=== PATIENT | female | born 1950 | race Caucasian/White ===

== ENCOUNTER 2016-09-21 16:57 | Emergency (ER) | payer MEDICARE, MEDICAID ==
--- NOTE | 2016-09-21 17:57 | ER Document Report ---
ED Medical Screen (RME) - General Stated Complaint: FLU LIKE SYMPTOMS Notes: 66 yo female c/o flu like symptoms, fever, bodyache. + flu test at urgent care today + nausea/vomiting x 3 days. hx/o pacer, arthritis pt is tachy 120 TRAVEL OUTSIDE OF THE [place] IN LAST 30 DAYS: No - Related Data Allergies/Adverse Reactions: codeine [Codeine] Allergy (Verified 09/21/16 17:52) Past Medical History GI Medical History: Reports: Hx Gastroesophageal Reflux Disease Musculoskeltal Medical History: Reports Hx Arthritis Past Surgical History: Reports: Hx Cholecystectomy Physical Exam - Vital signs Vitals: Temp Pulse Resp BP Pulse Ox 100.9 F H 120 H 18 115/79 94 09/21/16 17:15 09/21/16 17:15 09/21/16 17:15 09/21/16 17:15 09/21/16 17:15 Course - Vital Signs Vital signs: Temp Pulse Resp BP Pulse Ox 100.9 F H 120 H 18 115/79 94 09/21/16 17:15 09/21/16 17:15 09/21/16 17:15 09/21/16 17:15 09/21/16 17:15
[2016-09-21 18:29] LABS: HEMATOCRIT 42.1 % (36.0-47.0); HEMOGLOBIN 14.2 g/dL (12.0-15.5); HGB HCT DIFFERENCE 0.5; MEAN CORPUSCULAR HEMOGLOBIN 30.2 pg (27.0-33.4); MEAN CORPUSCULAR HGB CONC 33.8 g/dL (32.0-36.0); MEAN CORPUSCULAR VOLUME 89 fl (80-97); RED BLOOD COUNT 4.72 10^6/uL (3.72-5.28); RED CELL DISTRIBUTION WIDTH 15.3 % (11.5-14.0); WHITE BLOOD COUNT 18.4 10^3/uL (4.0-10.5)
[2016-09-21 18:44] LABS: ALANINE AMINOTRANSFERASE 138 U/L (9-52); ALKALINE PHOSPHATASE 87 U/L (38-126); ANION GAP 14 (5-19); ASPARTATE AMINO TRANSFERASE 60 U/L (14-36); BAND NEUTROPHILS % (MANUAL) 5 % (3-5); BASOPHILS % (MANUAL) 0 % (0-2); BILIRUBIN,DIRECT 0.3 mg/dL (0.0-0.4); BILIRUBIN,TOTAL 0.7 mg/dL (0.2-1.3); BLOOD UREA NITROGEN 19 mg/dL (7-20); CALCIUM 10.2 mg/dL (8.4-10.2); CARBON DIOXIDE 21 mmol/L (22-30); CHLORIDE 101 mmol/L (98-107); CREATININE RESULT 1.06 mg/dL (0.52-1.25); EOSINOPHILS % (MANUAL) 0 % (0-6); GLUCOSE 98 mg/dL (75-110); LIPASE 67.5 U/L (23-300); LYMPHOCYTES % (MANUAL) 15 % (13-45); POTASSIUM 4.4 mmol/L (3.6-5.0); TOTAL CELLS COUNTED 100; TOTAL PROTEIN 6.6 g/dL (6.3-8.2)
[2016-09-21 18:47] LABS: POLYCHROMASIA 1+; TOXIC GRANULATION 1+; TOXIC VACUOLATION PRESENT
[2016-09-21 18:51] LABS: ANISOCYTOSIS SLIGHT; PLATELET CLUMPS PRESENT; TARGET CELLS SLIGHT
[2016-09-21] MEDS ORDERED: NORMAL SALINE 500 ML IV ONE (22:24)
[2016-09-21] MEDS ORDERED: IBUPROFEN 600 MG TABLET PO ONE (22:25)
--- NOTE | 2016-09-21 22:40 | ER Document Report ---
ED General - General Time seen by provider: 22:18 Mode of Arrival: Ambulatory Information source: Patient TRAVEL OUTSIDE OF THE [place] IN LAST 30 DAYS: No - HPI Onset: Other - see HPI note Associated symptoms: Nonproductive cough, Fever, Nausea, Vomiting, Sore throat. denies: Diarrhea <JOYCELYN ORDOÑEZ - Last Filed: 09/22/16 01:14> <ROSESHAQALESHA - Last Filed: 09/22/16 09:19> - General Chief Complaint: Flu Symptoms Stated Complaint: FLU LIKE SYMPTOMS Notes: Patient is a 66 year old female presenting to the ED for lack of appetite, dehydration, vomiting, and shortness of breath. Patient states she has had a cough and cold symptoms for 3 weeks. Patient saw her PCP today at [facility] and was evaluated. Patient had a negative influenza A and B, negative strep test, and a fever of 102.8 F. Patient was given Tylenol for this. Upon arrival the patient's temperature was 100.9 F. Patient states she has had nausea, vomiting, and lack of appetite for the last few days and not been able to urinate since this morning. Patient was not able to give a urine sample at her PCP today either. Patient had some water in the ED but has not been able to eat much over the last few days. Patient also has some shortness of breath and is speaking in broken sentences. Patient denies abdominal pain or diarrhea. Patient has a history of a pacemaker, knee surgery x2, blood clots, and arthritis. Patient is taking eliquis. Patient is allergic to codeine. (JOYCELYN ORDOÑEZ) - Related Data Allergies/Adverse Reactions: codeine [Codeine] Allergy (Verified 09/21/16 17:52) Past Medical History - General Information source: Patient - Social History Smoking Status: Unknown if Ever Smoked Chew tobacco use (# tins/day): No Frequency of alcohol use: None Drug Abuse: None Family History: None Patient has suicidal ideation: No Patient has homicidal ideation: No - Past Medical History Cardiac Medical History: Reports: Other - blood clots GI Medical History: Reports: Hx Gastroesophageal Reflux Disease Musculoskeltal Medical History: Reports Hx Arthritis Past Surgical History: Reports: Hx Cholecystectomy, Hx Orthopedic Surgery - knee surgery x2, Hx Pacemaker <JOYCELYN ORDOÑEZ - Last Filed: 09/22/16 01:14> Review of Systems - Review of Systems Constitutional: See HPI, Fever, Malaise EENT: See HPI, Nose congestion, Throat pain Cardiovascular: No symptoms reported Respiratory: See HPI, Cough, Short of breath Gastrointestinal: See HPI, Nausea, Vomiting, Poor appetite, Poor fluid intake. denies: Abdominal pain, Diarrhea Genitourinary: See HPI, Retention Female Genitourinary: No symptoms reported Musculoskeletal: No symptoms reported Skin: No symptoms reported Hematologic/Lymphatic: No symptoms reported Neurological/Psychological: No symptoms reported -: Yes All other systems reviewed and negative <JOYCELYN ORDOÑEZ - Last Filed: 09/22/16 01:14> Physical Exam - Vital signs Interpretation: Tachycardic, Febrile - General General appearance: Appears well, Alert In distress: Mild - HEENT Head: Normocephalic, Atraumatic Eyes: Normal Pupils: PERRL Mucous membranes: Moist - Respiratory Respiratory status: No respiratory distress Chest status: Nontender Breath sounds: Nonproductive cough Chest palpation: Normal - Cardiovascular Rhythm: Regular, Tachycardia Heart sounds: Normal auscultation Murmur: No - Abdominal Inspection: Normal Distension: No distension Bowel sounds: Normal Tenderness: Nontender Organomegaly: No organomegaly - Back Back: Normal, Nontender - Extremities General upper extremity: Normal inspection, Normal ROM, Normal strength General lower extremity: Normal inspection, Normal ROM, Normal strength - Neurological Neuro grossly intact: Yes Cognition: Normal Orientation: AAOx4 Asya Coma Scale Eye Opening: Spontaneous Saya Coma Scale Verbal: Oriented Duncan Coma Scale Motor: Obeys Commands Asya Coma Scale Total: 15 Speech: Normal Sensory: Normal - Psychological Associated symptoms: Normal affect, Normal mood - Skin Skin Temperature: Hot Skin Moisture: Dry <JOYCELYN ORDOÑEZ - Last Filed: 09/22/16 01:14> <ALESHA ROSE - Last Filed: 09/22/16 09:19> - Vital signs Vitals: Temp Pulse Resp BP Pulse Ox 100.9 F H 120 H 18 115/79 94 09/21/16 17:15 09/21/16 17:15 09/21/16 17:15 09/21/16 17:15 09/21/16 17:15 Course - Laboratory Result Diagrams: 09/21/16 18:05 09/21/16 18:05 <JOYCELYN ORDOÑEZ - Last Filed: 09/22/16 01:14> - Laboratory Result Diagrams: 09/21/16 18:05 09/21/16 18:05 <ALESHA ROSE - Last Filed: 09/22/16 09:19> - Re-evaluation Re-evalutation: 09/22/16 03:38 I personally performed the services described in the documentation, reviewed and edited the documentation which was dictated to my scribe in my presence, and it accurately records my words and actions. Patient came into the emergency department with flulike symptoms cough upper restrain illness mild occasional shortness of breath and vomiting for the past 3 days. She says she feels like she has the flu. She denies any documentation of fever chills abdominal pain or urinary complaints. On examination she was febrile and slightly tachycardic O2 sat was 94% on room air her lungs were clear she was in no respiratory distress we gave her IV fluids obtain laboratory evaluation White blood cell count is elevated liver shot of Rocephin for reading of left upper lobe and left lower lobe pneumonia. Patient will be reassessed with full set of vital signs including oxygenation level after Rocephin is given. 09/22/16 09:17 Patient reassessed stable at the bedside no difficulty breathing fever has defervesced. She was given Rocephin she wants to try to go home follow-up with the primary care physician one to 2 days I think that's reasonable at this point. I discharge her to home on antibiotics 1-2 day follow-up and discuss reasons for ED return sooner (ALESHA ROSE) - Vital Signs Vital signs: Temp Pulse Resp BP Pulse Ox 98.9 F 104 H 16 113/71 92 09/22/16 06:29 09/22/16 06:29 09/22/16 03:30 09/22/16 06:29 09/22/16 06:29 - Laboratory Laboratory results interpreted by me: 09/21/16 09/21/16 09/21/16 18:05 18:05 23:20 WBC 18.4 H RDW 15.3 H Monocytes % (Manual) 14 H Abs Neuts (Manual) 12.3 H Abs Monocytes (Manual) 2.6 H Sodium 136.0 L Carbon Dioxide 21 L Est GFR (Non-Af Amer) 52 L AST 60 H ALT 138 H Urine Protein 100 H Urine Ketones TRACE H Urine Blood SMALL H Discharge <JOYCELYN ORDOÑEZ - Last Filed: 09/22/16 01:14> <ALESHA ROSE - Last Filed: 09/22/16 09:19> - Discharge Clinical Impression: Pneumonia Qualifiers: Pneumonia type: due to unspecified organism Laterality: unspecified laterality Lung location: unspecified part of lung Qualified Code(s): J18.9 - Pneumonia, unspecified organism Condition: Stable Disposition: HOME, SELF-CARE Additional Instructions: Pneumonia Your examination indicates that you have pneumonia. This is an infection of the lung tissue, usually caused by bacteria or a virus. Symptoms include cough, fever, shaking chills, chest pain, shortness of breath, and coughing up bloody sputum. Treatment for bacterial pneumonia includes rest, antibiotics for 10 to 14 days, increasing your clear liquid intake, a cool mist humidifier at your bedside, and fever medication. Often, a repeat chest X-ray is performed in a few weeks--even if you feel better--to ascertain whether the infection has completely resolved and no underlying lung problem is present. You should call the physician if you develop persistent vomiting, high fever that does not respond to fever medication, increasing shortness of breath , confusion, or lethargy. Also, failure to improve within two to three days is an indication for re-examination. Follow-up with your primary care physician one to 2 days return for increasing worsening or new symptoms. Prescriptions: Amox Tr/Potassium Clavulanate [Augmentin 875-125 Tablet] 1 tab PO BID 10 Days Scribe Documentation - Scribe Written by Sera:: Joycelyn Ordoñez 09/22/16 1:14 acting as scribe for :: Rose <JOYCELYN ORDOÑEZ - Last Filed: 09/22/16 01:14>
[2016-09-22 01:06] LABS: APPEARANCE,URINE CLOUDY; BILIRUBIN,URINE NEGATIVE (NEGATIVE); GLUCOSE, URINE NEGATIVE (NEGATIVE); KETONES,URINE TRACE mg/dL (NEGATIVE); LEUKOCYTE ESTERASE,URINE NEGATIVE (NEGATIVE); NITRITE,URINE NEGATIVE (NEGATIVE); PROTEIN,URINE 100 mg/dL (NEGATIVE); URINE SPECIFIC GRAVITY 1.027; UROBILINOGEN,URINE NEGATIVE mg/dL (<2.0)
[2016-09-22] MEDS ORDERED: CEFTRIAXONE INJ 1000 MG VIAL IM ONE (03:37)
[2016-09-22] MEDS ORDERED: IBUPROFEN 800 MG TABLET ONE (04:05)
[2016-09-22 09:42] VITALS: BP 125/80
== END 2016-09-22 10:00 | disposition home or self-care (01) ==
LOC: ER 16:57
DX: J18.9 Pneumonia, unspecified organism (principal); R63.0 Anorexia; E86.0 Dehydration; R11.10 Vomiting, unspecified; R06.02 Shortness of breath; R05 Cough; R50.9 Fever, unspecified
CPT/HCPCS: 99284; 96372; 51701; 36415; 87040; 83690; 85025; 80053; 81001; 71020; A9270; J0696

== ENCOUNTER 2016-09-27 11:33 | Inpatient (IN) | payer MEDICARE, MEDICAID ==
--- NOTE | 2016-09-27 12:13 | ER Document Report ---
ED General - General Stated Complaint: FALL/GENERALIZED PAIN Mode of Arrival: Ambulatory Information source: Patient Notes: 66-year-old female who was diagnosed one week ago with pneumonia presents with complaints of generalized weakness shortness of breath. Patient notes she laid on the floor since yesterday due to weakness. Denies any fevers admits to productive yellow cough TRAVEL OUTSIDE OF THE [place] IN LAST 30 DAYS: No - HPI Onset: Last week Onset/Duration: Persistent Quality of pain: Achy Severity: Mild Pain Level: 1 Associated symptoms: Productive cough, Fever, Shortness of breath Exacerbated by: Denies Relieved by: Denies Similar symptoms previously: Yes Recently seen / treated by doctor: Yes - Related Data Allergies/Adverse Reactions: codeine [Codeine] Allergy (Verified 09/21/16 17:52) Past Medical History - Social History Smoking Status: Former Smoker Cigarette use (# per day): No Chew tobacco use (# tins/day): No Smoking Education Provided: No Family History: None Renal/ Medical History: Denies: Hx Peritoneal Dialysis GI Medical History: Reports: Hx Gastroesophageal Reflux Disease Musculoskeltal Medical History: Reports Hx Arthritis Past Surgical History: Reports: Hx Cholecystectomy, Hx Orthopedic Surgery - knee surgery x2, Hx Pacemaker Review of Systems - Review of Systems Notes: REVIEW OF SYSTEMS: CONSTITUTIONAL : Denies fever, chills, or sweats. Denies recent illness. EENT: Dry lips CARDIOVASCULAR: Denies chest pain. Denies palpitations or racing or irregular heart beat. Denies ankle edema. RESPIRATORY: Admits shortness breath difficulty breathing GASTROINTESTINAL: Denies abdominal pain or distention. Denies nausea, vomiting , or diarrhea. Denies blood in vomitus, stools, or per rectum. Denies black, tarry stools. Denies constipation. GENITOURINARY: Denies difficulty urinating, painful urination, burning, frequency, blood in urine, or discharge. FEMALE GENITOURINARY: Denies vaginal bleeding, heavy or abnormal periods, irregular periods. Denies vaginal discharge or odor. MUSCULOSKELETAL: Denies back or neck pain or stiffness. Denies joint pain or swelling. SKIN: Denies rash, lesions or sores. HEMATOLOGIC : Denies easy bruising or bleeding. LYMPHATIC: Denies swollen, enlarged glands. NEUROLOGICAL: Denies confusion or altered mental status. Denies passing out or loss of consciousness. Denies dizziness or lightheadedness. Denies headache. Denies weakness or paralysis or loss of use of either side. Denies problems with gait or speech. Denies sensory loss, numbness, or tingling. Denies seizures. PSYCHIATRIC: Denies anxiety or stress. Denies depression, suicidal ideation, or homicidal ideation. ALL OTHER SYSTEMS REVIEWED AND NEGATIVE. Dictation was performed using [employer] voice recognition software PHYSICAL EXAMINATION: GENERAL: Well-appearing, well-nourished and in no acute distress. HEAD: Atraumatic, normocephalic. EYES: Pupils equal round and reactive to light, extraocular movements intact, conjunctiva are normal. ENT: Dry lips NECK: Normal range of motion, supple without lymphadenopathy LUNGS: Coarse wheezing all throughout HEART: Tachycardic ABDOMEN: Soft, nontender, nondistended abdomen. No guarding, no rebound. No masses appreciated. Female : deferred Musculoskeletal: Normal range of motion, no pitting or edema. No cyanosis. NEUROLOGICAL: Cranial nerves grossly intact. Normal speech, normal gait. Normal sensory, motor exams PSYCH: Normal mood, normal affect. SKIN: Left foot erythematous Course - Re-evaluation Re-evalutation: 09/27/16 12:13 Patient notes chronic swelling of her left foot secondary to arthritis, patient is noted to be tachycardic septic workup pending 09/27/16 14:[address] is noted to have upper and lower lobe pneumonia, at this time she meet sepsis criteria. Patient started on antibiotics. Fluids have been ordered. Patient will be admitted to the hospital service for further evaluation and care 09/27/16 14:04 Patient noted to be satting 88% on room air, she was placed on oxygen - Laboratory Result Diagrams: 09/27/16 12:35 09/27/16 12:35 Laboratory results interpreted by me: 09/27/16 09/27/16 09/27/16 12:35 12:35 12:35 WBC 19.0 H Hct 35.9 L RDW 15.8 H Seg Neuts % (Manual) 87 H Lymphocytes % (Manual) 5 L Abs Neuts (Manual) 17.3 H VBG pH BUN 22 H Calcium 10.5 H AST 244 H ALT 250 H Alkaline Phosphatase 162 H Creatine Kinase 654 H NT-Pro-B Natriuret Pep 1020 H Total Protein 5.7 L Albumin 3.0 L Urine Protein Urine Ketones Urine Blood 09/27/16 09/27/16 12:35 13:10 WBC Hct RDW Seg Neuts % (Manual) Lymphocytes % (Manual) Abs Neuts (Manual) VBG pH 7.44 H BUN Calcium AST ALT Alkaline Phosphatase Creatine Kinase NT-Pro-B Natriuret Pep Total Protein Albumin Urine Protein 30 H Urine Ketones TRACE H Urine Blood MODERATE H - Diagnostic Test Radiology reviewed: Image reviewed, Reports reviewed Critical Care Note - Critical Care Note Total time excluding time spent on procedures (mins): 34 Comments: 34 minutes of critical care time spent in direct contact evaluating and reevaluating the patient, treating symptoms, reviewing labs and studies and speaking with family and consultants excluding any procedures Discharge - Discharge Clinical Impression: Hypoxemia Sepsis Qualifiers: Sepsis type: sepsis due to unspecified organism Qualified Code(s): A41.9 - Sepsis, unspecified organism Pneumonia Qualifiers: Pneumonia type: due to unspecified organism Laterality: left Lung location: lower lobe of lung Qualified Code(s): J18.1 - Lobar pneumonia, unspecified organism Condition: Stable Disposition: ADMITTED INPATIENT Admitting Provider: Hospitalist Unit Admitted: Medical Floor
[2016-09-27 13:03] LABS: VENOUS BLOOD BASE EXCESS 0.7 mmol/L; VENOUS BLOOD HCO3 24.3 mmol/L (20-32); VENOUS BLOOD PCO2 36.3 mmHg (35-63); VENOUS BLOOD PH 7.44 (7.30-7.42)
[2016-09-27 13:06] LABS: HEMATOCRIT 35.9 % (36.0-47.0); HEMOGLOBIN 12.2 g/dL (12.0-15.5); HGB HCT DIFFERENCE 0.7; MEAN CORPUSCULAR HEMOGLOBIN 30.2 pg (27.0-33.4); MEAN CORPUSCULAR HGB CONC 34.1 g/dL (32.0-36.0); MEAN CORPUSCULAR VOLUME 89 fl (80-97); RED BLOOD COUNT 4.05 10^6/uL (3.72-5.28); RED CELL DISTRIBUTION WIDTH 15.8 % (11.5-14.0)
--- NOTE | 2016-09-27 13:15 | EKG REPORT ---
SEVERITY:- ABNORMAL ECG - SINUS TACHYCARDIA IVCD, CONSIDER ATYPICAL RBBB LVH WITH IVCD AND SECONDARY REPOL ABNRM : Confirmed by: Sally Agee MD 27-Sep-2016 13:14:26
[2016-09-27 13:23] LABS: ALANINE AMINOTRANSFERASE 250 U/L (9-52); ALKALINE PHOSPHATASE 162 U/L (38-126); ANION GAP 10 (5-19); ASPARTATE AMINO TRANSFERASE 244 U/L (14-36); BILIRUBIN,DIRECT 0.3 mg/dL (0.0-0.4); BILIRUBIN,TOTAL 0.7 mg/dL (0.2-1.3); BLOOD UREA NITROGEN 22 mg/dL (7-20); CALCIUM 10.5 mg/dL (8.4-10.2); CARBON DIOXIDE 26 mmol/L (22-30); CHLORIDE 102 mmol/L (98-107); CREATINE KINASE 654 U/L (30-135); CREATININE RESULT 0.86 mg/dL (0.52-1.25); GLUCOSE 82 mg/dL (75-110); LIPASE 243.8 U/L (23-300); POTASSIUM 4.5 mmol/L (3.6-5.0); SODIUM 138.3 mmol/L (137-145); TOTAL PROTEIN 5.7 g/dL (6.3-8.2)
[2016-09-27 13:25] LABS: ANISOCYTOSIS SLIGHT; BAND NEUTROPHILS % (MANUAL) 4 % (3-5); BASOPHILS % (MANUAL) 0 % (0-2); EOSINOPHILS % (MANUAL) 0 % (0-6); HYPOCHROMASIA SLIGHT; LYMPHOCYTES % (MANUAL) 5 % (13-45); POLYCHROMASIA SLIGHT; TOTAL CELLS COUNTED 100; TOXIC GRANULATION 3+; TOXIC VACUOLATION PRESENT
[2016-09-27 13:29] LABS: APPEARANCE,URINE SLIGHTLY-CLOUDY; BILIRUBIN,URINE NEGATIVE (NEGATIVE); GLUCOSE, URINE NEGATIVE (NEGATIVE); KETONES,URINE TRACE mg/dL (NEGATIVE); LEUKOCYTE ESTERASE,URINE NEGATIVE (NEGATIVE); NITRITE,URINE NEGATIVE (NEGATIVE); PROTEIN,URINE 30 mg/dL (NEGATIVE); URINE SPECIFIC GRAVITY 1.019; UROBILINOGEN,URINE NEGATIVE mg/dL (<2.0)
[2016-09-27 13:36] LABS: CREATINE KINASE MB 1.85 ng/mL (<4.55); TROPONIN I 0.014 ng/mL
[2016-09-27] MEDS ORDERED: NORMAL SALINE 1000 ML 1,000 ML IV PRN (14:01)
[2016-09-27] MEDS ORDERED: LEVOFLOXACIN 750 MG/D5W RTU 150 ML IV ONE (14:02)
[2016-09-27] MEDS ORDERED: ACETAMINOPHEN 325 MG TABLET PO PRN (14:50)
--- NOTE | 2016-09-27 15:08 | PDOC H&P ---
History of Present Illness Admission Date/PCP: 09/27/16 14:31 Patient complains of: Shortness of breath History of Present Illness: DEMETRIA MAGAÑA is a 66 year old female who was seen in the emergency room on September 21 and diagnosed with pneumonia and started on Augmentin. The patient returns with worsening shortness of breath along with a productive cough yellow sputum. She also complains of diffuse myalgias. She also has had some crampy abdominal pain. The patient is found to have a left upper lobe pneumonia along with tachycardia consistent with a diagnosis of sepsis. The previous emergency room note noted that she tested positive for influenza however the patient denies that. This was supposedly done at an outlying clinic. The patient complains of the productive cough. She also has pleuritic type chest pain. She had a CT angiogram of the lungs that was negative for any type of pulmonary emboli however was significant for left-sided pneumonia. Patient also is noted have elevated liver enzymes that she has no history of drinking, making it suspicious for possible atypical bacterial infection. The patient denies any orthopnea or PND. She denies any nausea or vomiting. She denies any diarrhea or melena or bright red blood per rectum. Denies Any recent travel outside of [facility]. She denies any prolonged immobility. She does report that her had a very similar illness last week however he is improving. Past Medical History Cardiac Medical History: Reports: Other - Symptomatic bradycardia requiring pacemaker. Pulmonary Medical History: Reports: None Neurological Medical History: Reports: None Endocrine Medical History: Reports: Hypothyroidism - Reports she takes [place] Thyroid Renal/ Medical History: Reports: None Malignancy Medical History: Reports: None GI Medical History: Reports: Gastroesophageal Reflux Disease Musculoskeltal Medical History: Reports: Arthritis Skin Medical History: Reports: None Psychiatric Medical History: Reports: None Traumatic Medical History: Reports: None Hematology: Reports: None Past Surgical History Past Surgical History: Reports: Cholecystectomy, Orthopedic Surgery - knee surgery x2, Pacemaker Social History Information Source: Patient Lives with: Spouse/Significant other Smoking Status: Former Smoker Frequency of Alcohol Use: None Hx Recreational Drug Use: No Drugs: None Hx Prescription Drug Abuse: No - Advance Directive Resuscitation Status: Full Code Surrogate healthcare decision maker:: Her Family History Family History: Mother at age 86 with Alzheimer's. Father at age 86 and also had Alzheimer's. Parental Family History Reviewed: Yes Children Family History Reviewed: No Sibling(s) Family History Reviewed.: No Medication/Allergy Home Medications: Fluticasone Propionate [Flonase Nasal Emmet 50 Mcg/Emmet 16 gm] 2 spray NASL DAILY 09/22/16 Levocetirizine Dihydrochloride [Xyzal 5 mg Tablet] 5 mg PO DAILY 09/22/16 Metoprolol Tartrate [Lopressor 25 mg Tablet] 25 mg PO BID 09/22/16 Omeprazole 20 mg PO DAILY 09/22/16 Oxycodone HCl/Acetaminophen [Percocet 5-325 mg Tablet] 1 tab PO Q4HP PRN Allergies/Adverse Reactions: codeine [Codeine] Allergy (Verified 09/21/16 17:52) Review of Systems Constitutional: PRESENT: chills, fatigue, fever(s). ABSENT: headache(s), night sweats, weight gain, weight loss Eyes: ABSENT: visual disturbances Ears: ABSENT: hearing changes Cardiovascular: ABSENT: chest pain, dyspnea on exertion, edema, orthropnea, palpitations Respiratory: PRESENT: as per HPI Gastrointestinal: PRESENT: abdominal pain - Has had some crampy diffuse abdominal pain.. ABSENT: constipation, diarrhea, hematemesis, hematochezia, nausea, vomiting Genitourinary: ABSENT: dysuria, hematuria Musculoskeletal: ABSENT: joint swelling Integumentary: ABSENT: rash, wounds Psychiatric: ABSENT: anxiety, depression Endocrine: ABSENT: cold intolerance, heat intolerance, polydipsia, polyuria Hematologic/Lymphatic: ABSENT: easy bleeding, easy bruising Physical Exam General appearance: PRESENT: no acute distress Eye exam: PRESENT: conjunctiva pink, EOMI, PERRLA. ABSENT: scleral icterus Ear exam: PRESENT: normal external ear exam Mouth exam: PRESENT: dry mucosa Neck exam: ABSENT: carotid bruit, JVD, lymphadenopathy, thyromegaly Respiratory exam: PRESENT: rales - Left-sided inspiratory rales. ABSENT: rhonchi, wheezes Cardiovascular exam: PRESENT: tachycardia. ABSENT: diastolic murmur, rubs, systolic murmur Pulses: PRESENT: normal dorsalis pedis pul Vascular exam: PRESENT: normal capillary refill GI/Abdominal exam: PRESENT: normal bowel sounds, soft, tenderness - Mild diffuse tenderness but no guarding or rebound.. ABSENT: distended, guarding, mass, organolmegaly, rebound Rectal exam: PRESENT: deferred Extremities exam: ABSENT: calf tenderness, clubbing, pedal edema Neurological exam: PRESENT: alert, awake, oriented to person, oriented to place , oriented to time, oriented to situation, CN II-XII grossly intact. ABSENT: motor sensory deficit Psychiatric exam: PRESENT: appropriate affect Skin exam: PRESENT: dry, intact, warm. ABSENT: cyanosis, rash Results Impressions: Chest/Abdomen CTA 09/27/16 11:56 IMPRESSION: Patchy left upper lobe and left lower lobe pneumonia. No CT angio evidence of acute pulmonary emboli Assessment & Plan - Diagnosis (1) Sepsis Qualifiers: Sepsis type: sepsis due to unspecified organism Qualified Code(s): A41.9 - Sepsis, unspecified organism Is this a current diagnosis for this admission?: YesPlan: Patient has fever, leukocytosis, tachycardia CONSISTENT with sepsis syndrome most likely secondary to her underlying pneumonia. We will treat aggressively with IV fluids and cover with IV Levaquin. (2) Pneumonia Qualifiers: Pneumonia type: due to unspecified organism Laterality: left Lung location: lower lobe of lung Qualified Code(s): J18.1 - Lobar pneumonia, unspecified organism Is this a current diagnosis for this admission?: YesPlan: The patient has left-sided pneumonia with some significant hypoxia. Chest CT shows no evidence for pulmonary emboli. We will continue the IV fluids and IV Levaquin. She has elevated liver enzymes also that suggests an atypical bacterial infection. (3) Hypothyroidism Is this a current diagnosis for this admission?: YesPlan: The patient reports that she normally takes [place] Thyroid and is uncertain as to the dose. Will restart that once she finds out what the dosage is. (4) Gastroesophageal reflux disease Is this a current diagnosis for this admission?: YesPlan: Continue Prilosec. (5) Osteoarthritis Is this a current diagnosis for this admission?: YesPlan: She normally takes Percocet for her arthritis. (6) Sick sinus syndrome Is this a current diagnosis for this admission?: YesPlan: The patient has pacemaker in place she reports that it was because of slow and fast heart rate. By her description it sounds like that she had sick sinus syndrome. She has been on Lopressor for rate control of tachycardia. She has a pacemaker for preventing bradycardia. - Time Time Spent: 50 to 70 Minutes - Inpatient Certification Medical Necessity: Need Close Monitoring Due to Risk of Patient Decompensation, Need For IV Fluids, Need for IV Antibiotics - Plan Summary Plan Summary: We'll admit as an inpatient as I anticipate this will require greater than a 2 midnight hospital stay.
[2016-09-27] MEDS: ALBUTEROL SULFATE 0.083% NEB 2.5 MG/3 ML AMPUL NEB PRN (19:30)
[2016-09-27] MEDS: NORMAL SALINE 1000 ML 1,000 ML IV PRN (21:16)
[2016-09-27] MEDS: FAMOTIDINE 20 MG TABLET PO SCH (21:16)
[2016-09-28] MEDS: NORMAL SALINE 1000 ML 1,000 ML IV PRN (04:26)
[2016-09-28 05:25] LABS: HEMATOCRIT 30.8 % (36.0-47.0); HEMOGLOBIN 10.6 g/dL (12.0-15.5); MEAN CORPUSCULAR HEMOGLOBIN 30.2 pg (27.0-33.4); MEAN CORPUSCULAR HGB CONC 34.3 g/dL (32.0-36.0); MEAN CORPUSCULAR VOLUME 88 fl (80-97); RED CELL DISTRIBUTION WIDTH 15.8 % (11.5-14.0)
[2016-09-28 05:47] LABS: ALANINE AMINOTRANSFERASE 192 U/L (9-52); ALBUMIN 2.3 g/dL (3.5-5.0); ALKALINE PHOSPHATASE 128 U/L (38-126); ANION GAP 8 (5-19); ASPARTATE AMINO TRANSFERASE 193 U/L (14-36); BILIRUBIN,DIRECT 0.2 mg/dL (0.0-0.4); BILIRUBIN,TOTAL 0.5 mg/dL (0.2-1.3); BLOOD UREA NITROGEN 15 mg/dL (7-20); CALCIUM 9.1 mg/dL (8.4-10.2); CARBON DIOXIDE 22 mmol/L (22-30); CHLORIDE 108 mmol/L (98-107); CREATININE RESULT 0.71 mg/dL (0.52-1.25); GLUCOSE 88 mg/dL (75-110); POTASSIUM 3.8 mmol/L (3.6-5.0); SODIUM 137.8 mmol/L (137-145); TOTAL PROTEIN 4.6 g/dL (6.3-8.2)
[2016-09-28] MEDS ORDERED: ENOXAPARIN SODIUM INJ 40 MG/0.4 ML DISP.SYRIN SUBCUT SCH (08:00)
[2016-09-28] MEDS: ALBUTEROL SULFATE 0.083% NEB 2.5 MG/3 ML AMPUL NEB PRN ×2 (09:34→21:02)
[2016-09-28] MEDS: LEVOFLOXACIN 750 MG/D5W RTU 150 ML IV SCH (09:56)
[2016-09-28] MEDS: FAMOTIDINE 20 MG TABLET PO SCH ×2 (09:56→21:17)
[2016-09-28] MEDS ORDERED: OXYCODONE-ACETAMINOPHEN 5-325 MG TABLET PO PRN (11:05)
[2016-09-28] MEDS ORDERED: (PENDING PHARMACY ID) (Butalb/Acetaminophen/Caffeine [Butalb-Acetamin-Caff 50-300-40] 1 CA PO PRN (11:05)
--- NOTE | 2016-09-28 11:05 | PDOC PROGRESS REPORT ---
Subjective Progress Note for:: 09/28/16 Subjective:: Patient reports her breathing is doing better today. Physical Exam Vital Signs: Temp Pulse Resp BP Pulse Ox 98.2 F 83 16 121/71 93 09/28/16 07:16 09/28/16 09:34 09/28/16 09:34 09/28/16 07:16 09/28/16 09:34 Intake & Output 09/27/16 09/28/16 09/29/16 06:59 06:59 06:59 Intake Total 2050 Output Total 200 Balance 1850 Weight 117 kg General appearance: PRESENT: no acute distress Eye exam: PRESENT: conjunctiva pink. ABSENT: scleral icterus Mouth exam: PRESENT: moist, tongue midline Neck exam: ABSENT: JVD Respiratory exam: PRESENT: rales - Basilar rales Cardiovascular exam: PRESENT: RRR. ABSENT: diastolic murmur, rubs, systolic murmur GI/Abdominal exam: PRESENT: normal bowel sounds, soft. ABSENT: distended, guarding, mass, organolmegaly, rebound, tenderness Extremities exam: ABSENT: calf tenderness, clubbing, pedal edema Neurological exam: PRESENT: alert, awake, oriented to person, oriented to place , oriented to time, oriented to situation, CN II-XII grossly intact. ABSENT: motor sensory deficit Psychiatric exam: PRESENT: appropriate affect Skin exam: PRESENT: dry, intact, warm. ABSENT: cyanosis, rash Results Laboratory Results: 09/28/16 05:16 09/28/16 05:16 09/28/16 09/28/16 05:16 05:16 WBC 17.0 H RBC 3.50 L Hgb 10.6 L Hct 30.8 L MCV 88 MCH 30.2 MCHC 34.3 RDW 15.8 H Plt Count 409 Sodium 137.8 Potassium 3.8 Chloride 108 H Carbon Dioxide 22 Anion Gap 8 BUN 15 Creatinine 0.71 Est GFR ( Amer) > 60 Est GFR (Non-Af Amer) > 60 Glucose 88 Calcium 9.1 Total Bilirubin 0.5 AST 193 H ALT 192 H Alkaline Phosphatase 128 H Total Protein 4.6 L Albumin 2.3 L Impressions: Chest/Abdomen CTA 09/27/16 11:56 IMPRESSION: Patchy left upper lobe and left lower lobe pneumonia. No CT angio evidence of acute pulmonary emboli Assessment & Plan - Diagnosis (1) Sepsis Qualifiers: Sepsis type: sepsis due to unspecified organism Qualified Code(s): A41.9 - Sepsis, unspecified organism Is this a current diagnosis for this admission?: YesPlan: Patient has fever, leukocytosis, tachycardia consistent with sepsis syndrome most likely secondary to her underlying pneumonia. We will treat aggressively with IV fluids and cover with IV Levaquin. (2) Pneumonia Qualifiers: Pneumonia type: due to unspecified organism Laterality: left Lung location: lower lobe of lung Qualified Code(s): J18.1 - Lobar pneumonia, unspecified organism Is this a current diagnosis for this admission?: YesPlan: The patient has left-sided pneumonia with some significant hypoxia. She has elevated liver enzymes also that suggests an atypical bacterial infection. (3) Hypothyroidism Is this a current diagnosis for this admission?: YesPlan: The patient reports that she normally takes [place] Thyroid. (4) Gastroesophageal reflux disease Is this a current diagnosis for this admission?: YesPlan: Continue Prilosec. (5) Osteoarthritis Is this a current diagnosis for this admission?: YesPlan: She normally takes Percocet for her arthritis. (6) Sick sinus syndrome Is this a current diagnosis for this admission?: YesPlan: The patient has pacemaker in place she reports that it was because of slow and fast heart rate. By her description it sounds like that she had sick sinus syndrome. She has been on Lopressor for rate control of tachycardia. She has a pacemaker for preventing bradycardia. - Time Time Spent with patient: 25-34 minutes - Inpatient Certification Medical Necessity: Need Close Monitoring Due to Risk of Patient Decompensation
[2016-09-28] MEDS ORDERED: DICLOFENAC SODIUM TOP SCH (12:00)
[2016-09-28] MEDS ORDERED: BUTALB/ACETAMINOPHEN/CAFFEINE 1 TAB EACH PO PRN (12:00)
[2016-09-28] MEDS: METOPROLOL TARTRATE 25 MG TABLET PO SCH (21:17)
[2016-09-28] MEDS: APIXABAN 5 MG TABLET PO SCH (21:17)
[2016-09-29 05:17] LABS: ABSOLUTE EOSINOPHILS # (AUTO) 0.1 10^3/uL (0.0-0.6); ABSOLUTE LYMPHOCYTES (AUTO) 1.2 10^3/uL (0.5-4.7); ABSOLUTE MONOCYTES (AUTO) 1.2 10^3/uL (0.1-1.4); BASOPHILS % (AUTO) 0.3 % (0-2); EOSINOPHILS % (AUTO) 0.7 % (0-6); HEMOGLOBIN 10.7 g/dL (12.0-15.5); HGB HCT DIFFERENCE 0.1; MEAN CORPUSCULAR HEMOGLOBIN 30.1 pg (27.0-33.4); MEAN CORPUSCULAR HGB CONC 33.6 g/dL (32.0-36.0); MEAN CORPUSCULAR VOLUME 90 fl (80-97); MONOCYTES % (AUTO) 8.6 % (3-13); RED BLOOD COUNT 3.57 10^6/uL (3.72-5.28); RED CELL DISTRIBUTION WIDTH 16.4 % (11.5-14.0); SEGMENTED NEUTROPHILS % (AUTO) 81.4 % (42-78); WHITE BLOOD COUNT 13.5 10^3/uL (4.0-10.5)
[2016-09-29 05:47] LABS: ANION GAP 9 (5-19); BLOOD UREA NITROGEN 10 mg/dL (7-20); CALCIUM 9.2 mg/dL (8.4-10.2); CARBON DIOXIDE 22 mmol/L (22-30); CHLORIDE 109 mmol/L (98-107); GLUCOSE 102 mg/dL (75-110); POTASSIUM 4.1 mmol/L (3.6-5.0); SODIUM 140.4 mmol/L (137-145)
[2016-09-29] MEDS ORDERED: (PENDING PHARMACY ID) (Levocetirizine Dihydrochloride [Xyzal 5 Mg Tablet] 5 MG) PO SCH (10:00)
[2016-09-29] MEDS: METOPROLOL TARTRATE 25 MG TABLET PO SCH ×2 (10:02→21:13)
[2016-09-29] MEDS: FAMOTIDINE 20 MG TABLET PO SCH ×2 (10:02→21:13)
[2016-09-29] MEDS: LANSOPRAZOLE 15 MG TAB.RAP.DR PO SCH (10:02)
[2016-09-29] MEDS: CETIRIZINE 5 MG TABLET PO SCH (10:03)
[2016-09-29] MEDS: THYROID (PORK) 60 MG TABLET PO SCH (10:03)
[2016-09-29] MEDS: APIXABAN 5 MG TABLET PO SCH ×2 (10:05→21:12)
[2016-09-29] MEDS: LEVOFLOXACIN 750 MG/D5W RTU 150 ML IV SCH (10:11)
[2016-09-29] MEDS: NORMAL SALINE 1000 ML 1,000 ML IV PRN (10:17)
--- NOTE | 2016-09-29 10:42 | PDOC PROGRESS REPORT ---
Subjective Progress Note for:: 09/29/16 Subjective:: Patient reports her breathing is doing better today. Physical Exam Vital Signs: Temp Pulse Resp BP Pulse Ox 98.1 F 83 20 128/72 H 97 09/29/16 07:24 09/29/16 07:24 09/29/16 07:24 09/29/16 07:24 09/29/16 07:24 Intake & Output 09/28/16 09/29/16 09/30/16 06:59 06:59 06:59 Intake Total 2050 1537 1749 Output Total 200 1630 Balance 1850 -93 1749 Weight 117 kg 117.2 kg General appearance: PRESENT: no acute distress Eye exam: PRESENT: conjunctiva pink. ABSENT: scleral icterus Mouth exam: PRESENT: moist, tongue midline Neck exam: ABSENT: JVD Respiratory exam: PRESENT: rales - Left-sided inspiratory rales. ABSENT: rhonchi, wheezes Cardiovascular exam: PRESENT: RRR. ABSENT: diastolic murmur, rubs, systolic murmur GI/Abdominal exam: PRESENT: normal bowel sounds, soft. ABSENT: distended, guarding, mass, organolmegaly, rebound, tenderness Extremities exam: ABSENT: calf tenderness, clubbing, pedal edema Neurological exam: PRESENT: alert, awake, oriented to person, oriented to place , oriented to time, oriented to situation, CN II-XII grossly intact. ABSENT: motor sensory deficit Psychiatric exam: PRESENT: appropriate affect Results Laboratory Results: 09/29/16 04:59 09/29/16 04:59 09/29/16 09/29/16 04:59 04:59 WBC 13.5 H RBC 3.57 L Hgb 10.7 L Hct 32.0 L MCV 90 MCH 30.1 MCHC 33.6 RDW 16.4 H Plt Count 510 H Seg Neutrophils % 81.4 H Lymphocytes % 9.0 L Monocytes % 8.6 Eosinophils % 0.7 Basophils % 0.3 Absolute Neutrophils 11.0 H Absolute Lymphocytes 1.2 Absolute Monocytes 1.2 Absolute Eosinophils 0.1 Absolute Basophils 0.0 Sodium 140.4 Potassium 4.1 Chloride 109 H Carbon Dioxide 22 Anion Gap 9 BUN 10 Creatinine 0.60 Est GFR ( Amer) > 60 Est GFR (Non-Af Amer) > 60 Glucose 102 Calcium 9.2 Impressions: Chest/Abdomen CTA 09/27/16 11:56 IMPRESSION: Patchy left upper lobe and left lower lobe pneumonia. No CT angio evidence of acute pulmonary emboli Assessment & Plan - Diagnosis (1) Sepsis Qualifiers: Sepsis type: sepsis due to unspecified organism Qualified Code(s): A41.9 - Sepsis, unspecified organism Is this a current diagnosis for this admission?: YesPlan: Patient has fever, leukocytosis, tachycardia consistent with sepsis syndrome most likely secondary to her underlying pneumonia. We will continue with IV fluids and IV Levaquin. (2) Pneumonia Qualifiers: Pneumonia type: due to unspecified organism Laterality: left Lung location: lower lobe of lung Qualified Code(s): J18.1 - Lobar pneumonia, unspecified organism Is this a current diagnosis for this admission?: YesPlan: The patient has left-sided pneumonia with some significant hypoxia. She has elevated liver enzymes also that suggests an atypical bacterial infection. Continue Levaquin (3) Hypothyroidism Is this a current diagnosis for this admission?: YesPlan: The patient reports that she normally takes [place] Thyroid. (4) Gastroesophageal reflux disease Is this a current diagnosis for this admission?: YesPlan: Continue Prilosec. (5) Osteoarthritis Is this a current diagnosis for this admission?: YesPlan: She normally takes Percocet for her arthritis. (6) Sick sinus syndrome Is this a current diagnosis for this admission?: YesPlan: The patient has pacemaker in place she reports that it was because of slow and fast heart rate. By her description it sounds like that she had sick sinus syndrome. She has been on Lopressor for rate control of tachycardia. She has a pacemaker for preventing bradycardia. - Time Time Spent with patient: 25-34 minutes - Inpatient Certification Medical Necessity: Need For IV Fluids, Need for IV Antibiotics
[2016-09-29] MEDS: ALBUTEROL SULFATE 0.083% NEB 2.5 MG/3 ML AMPUL NEB PRN (10:47)
[2016-09-30 07:34] LABS: ABSOLUTE BASOPHILS # (AUTO) 0.1 10^3/uL (0.0-0.2); ABSOLUTE EOSINOPHILS # (AUTO) 0.2 10^3/uL (0.0-0.6); ABSOLUTE LYMPHOCYTES (AUTO) 1.5 10^3/uL (0.5-4.7); ABSOLUTE MONOCYTES (AUTO) 1.1 10^3/uL (0.1-1.4); ABSOLUTE NEUT (AUTO) 8.5 10^3/uL (1.7-8.2); BASOPHILS % (AUTO) 0.7 % (0-2); EOSINOPHILS % (AUTO) 2.1 % (0-6); HEMATOCRIT 33.3 % (36.0-47.0); HEMOGLOBIN 11.4 g/dL (12.0-15.5); HGB HCT DIFFERENCE 0.9; LYMPHOCYTES % (AUTO) 13.1 % (13-45); MEAN CORPUSCULAR HEMOGLOBIN 30.7 pg (27.0-33.4); MEAN CORPUSCULAR HGB CONC 34.4 g/dL (32.0-36.0); MEAN CORPUSCULAR VOLUME 89 fl (80-97); MONOCYTES % (AUTO) 9.9 % (3-13); RED BLOOD COUNT 3.72 10^6/uL (3.72-5.28); RED CELL DISTRIBUTION WIDTH 16.1 % (11.5-14.0); SEGMENTED NEUTROPHILS % (AUTO) 74.2 % (42-78); WHITE BLOOD COUNT 11.4 10^3/uL (4.0-10.5)
[2016-09-30 07:59] LABS: ANION GAP 7 (5-19); BLOOD UREA NITROGEN 8 mg/dL (7-20); CARBON DIOXIDE 28 mmol/L (22-30); CHLORIDE 109 mmol/L (98-107); CREATININE RESULT 0.57 mg/dL (0.52-1.25); GLUCOSE 84 mg/dL (75-110); POTASSIUM 4.3 mmol/L (3.6-5.0); SODIUM 143.8 mmol/L (137-145)
[2016-09-30] MEDS: METOPROLOL TARTRATE 25 MG TABLET PO SCH (10:49)
[2016-09-30] MEDS: LANSOPRAZOLE 15 MG TAB.RAP.DR PO SCH (11:10)
[2016-09-30] MEDS: LEVOFLOXACIN 750 MG/D5W RTU 150 ML IV SCH (11:11)
[2016-09-30] MEDS: FAMOTIDINE 20 MG TABLET PO SCH (11:11)
[2016-09-30] MEDS: CETIRIZINE 5 MG TABLET PO SCH (11:11)
[2016-09-30] MEDS: APIXABAN 5 MG TABLET PO SCH (11:12)
[2016-09-30] MEDS: THYROID (PORK) 60 MG TABLET PO SCH (11:12)
[2016-09-30 11:38] VITALS: BP 134/83
--- NOTE | 2016-09-30 15:45 | PDOC DISCHARGE SUMMARY ---
General - Admit/Disc Date/PCP Admission Date/Primary Care Provider: 09/27/16 14:50 Discharge Date: 09/30/16 - Discharge Diagnosis (1) Sepsis Is this a current diagnosis for this admission?: Yes (2) Pneumonia Is this a current diagnosis for this admission?: Yes (3) Ambulatory dysfunction Is this a current diagnosis for this admission?: Yes (4) Gastroesophageal reflux disease Is this a current diagnosis for this admission?: Yes (5) Hypothyroidism Is this a current diagnosis for this admission?: Yes - Additional Information Resuscitation Status: Full Code Discharge Diet: Regular Discharge Activity: Slowly Increase Activity Home Medications: Apixaban [Eliquis 5 mg Tablet] 5 mg PO Q12 09/27/16 Butalb/Acetaminophen/Caffeine [Hmagjy-Ituukilz-Jhdd 50-300-40] 1 cap PO Q6HP PRN MDD 4 CAPSULES 09/27/16 Diclofenac Sodium [Voltaren] 4 mg TOP Q6 09/27/16 Fluticasone Propionate [Flonase Nasal [place] 50 Mcg/[place] 16 gm] 2 spray NASL DAILY 09/27/16 Levocetirizine Dihydrochloride [Xyzal 5 mg Tablet] 5 mg PO DAILY 09/27/16 Metoprolol Tartrate [Lopressor 25 mg Tablet] 25 mg PO Q12 09/27/16 Omeprazole 20 mg PO DAILY 09/27/16 Oxycodone HCl/Acetaminophen [Percocet 5-325 mg Tablet] 1 tab PO Q6HP PRN Thyroid (Pork) [[place] Thyroid 60 mg Tablet] 60 mg PO DAILY 09/27/16 Albuterol Sulfate [Proair HFA] 1 - 2 puff IH Q4 PRN #1 inhaler 09/30/16 Levofloxacin [Levaquin 750 mg Tablet] 750 mg PO DAILY #5 tablet 09/30/16 History of Present Illness Patient complains of: Shortness of breath History of Present Illness: DEMETRIA MAGAÑA is a 66 year old female who was seen in the emergency room on September 21 and diagnosed with pneumonia and started on Augmentin. The patient returns with worsening shortness of breath along with a productive cough yellow sputum. She also complains of diffuse myalgias. She also has had some crampy abdominal pain. The patient is found to have a left upper lobe pneumonia along with tachycardia consistent with a diagnosis of sepsis. The previous emergency room note noted that she tested positive for influenza however the patient denies that. This was supposedly done at an outlying clinic. The patient complains of the productive cough. She also has pleuritic type chest pain. She had a CT angiogram of the lungs that was negative for any type of pulmonary emboli however was significant for left-sided pneumonia. Patient also is noted have elevated liver enzymes that she has no history of drinking, making it suspicious for possible atypical bacterial infection. The patient denies any orthopnea or PND. She denies any nausea or vomiting. She denies any diarrhea or melena or bright red blood per rectum. Denies Any recent travel outside of [facility]. She denies any prolonged immobility. She does report that her had a very similar illness last week however he is improving. Hospital Course Hospital Course: Patient was admitted for left lung field pneumonia. She was started on IV Levaquin. She was afebrile on this antibiotic. White blood count was normalizing at time of discharge. She was clinically much improved. She was a baseline respiratory status. O2 sat was 96% on room air at time of discharge. She has been evaluated by physical therapy and will need ongoing home physical therapy upon discharge. We will arrange home health nursing and physical therapy. Patient will be prescribed 5 more days of oral Levaquin upon discharge. She will need to follow-up with her primary care provider and have follow-up chest x-ray in 3-4 weeks. Physical Exam Vital Signs: Temp Pulse Resp BP Pulse Ox 97.8 F 59 L 20 134/83 H 100 09/30/16 10:56 09/30/16 10:56 09/30/16 10:56 09/30/16 10:56 09/30/16 10:56 Intake & Output 09/29/16 09/30/16 10/01/16 06:59 06:59 06:59 Intake Total 1537 7115 2400 Output Total 1630 1800 1000 Balance -93 5315 1400 Weight 117.2 kg 118.1 kg GENERAL: No acute distress HEENT: Conjunctiva clear, nonicteric, moist mucous membranes, no JVD, midline trachea RESPIRATORY: Clear to auscultation bilaterally, no wheezes, no rhonchi CARDIAC: Regular rate and rhythm, no murmurs/gallops/rubs ABDOMEN: Soft, nondistended, nontender, positive bowel sounds, no rebound, no guarding EXTREMETIES: No edema, cyanosis, clubbing NEUROLOGIC: Alert, oriented to person/place/time, CN's grossly intact, no focal deficits SKIN: No rash, wounds PSYCH: Normal mood, normal affect Results Laboratory Results: 09/30/16 07:10 09/30/16 07:10 09/30/16 09/30/16 07:10 07:10 WBC 11.4 H RBC 3.72 Hgb 11.4 L Hct 33.3 L MCV 89 MCH 30.7 MCHC 34.4 RDW 16.1 H Plt Count 655 H Seg Neutrophils % 74.2 Lymphocytes % 13.1 Monocytes % 9.9 Eosinophils % 2.1 Basophils % 0.7 Absolute Neutrophils 8.5 H Absolute Lymphocytes 1.5 Absolute Monocytes 1.1 Absolute Eosinophils 0.2 Absolute Basophils 0.1 Sodium 143.8 Potassium 4.3 Chloride 109 H Carbon Dioxide 28 Anion Gap 7 BUN 8 Creatinine 0.57 Est GFR ( Amer) > 60 Est GFR (Non-Af Amer) > 60 Glucose 84 Calcium 10.0 Impressions: Chest/Abdomen CTA 09/27/16 11:56 IMPRESSION: Patchy left upper lobe and left lower lobe pneumonia. No CT angio evidence of acute pulmonary emboli Qualifiers PATEINT BEING DISCHARGED WITH ANY OF THE FOLLOWING DIAGNOSIS?: No Plan Discharge Plan: Follow-up chest x-ray in 3-4 weeks. Time Spent: Less than 30 Minutes
== END 2016-09-30 17:44 | disposition home health service (06) | DRG 871 ==
LOC: ER 11:33 → EH 14:31 → UNDOADMIN 14:31 → EH 14:50 → 4W 17:24
PROVIDERS: ADMIT Internal Medicine; ATTEND Internal Medicine
DX: A41.9 Sepsis, unspecified organism (principal); J18.1 Lobar pneumonia, unspecified organism; K21.9 Gastro-esophageal reflux disease without esophagitis; E03.9 Hypothyroidism, unspecified; M19.90 Unspecified osteoarthritis, unspecified site; Z79.899 Other long term (current) drug therapy; Z95.0 Presence of cardiac pacemaker; Z90.49 Acquired absence of other specified parts of digestive tract; Z88.8 Allergy status to other drugs, medicaments and biological substances
CPT/HCPCS: 36415; 51701; 71275; 80048; 80053; 81001; 82550; 82553; 82803; 83605; 83690; 83880; 84484; 85025; 85027; 93005; 93010; 94640; 99291; G8978-GP; G8979-GP; J1650; J1956; J3490; J7030

== ENCOUNTER → 2017-01-30 | Outpatient (CLI) | payer MEDICARE, MEDICAID ==
[~2017-01-30] MED LIST: BUPIVACAINE HCL 0.25 % INJ/PF (2.5 MG/1 ML) 30 ML VIAL ONE; EPHEDRINE SULFATE INJ 50 MG/1 ML AMPULE ONE; FENTANYL CITRATE INJ/PF 100 MCG/2 ML AMPUL ONE; FENTANYL/BUPIVACAINE/NS/PF 0 MCG/0 ML RTUINJ EPI ONE; PHENYLEPHRINE HCL INJ/PF 10 MG/1 ML SDV ONE
--- NOTE | 2017-01-30 16:28 | XCELERA REPORT ---
[address] [address] Lower Extremity Arterial Evaluation Name: DEMETRIA MAGAÑA Age: 66 yrs Gender: Female : 1950 Patient Status: Outpatient Patient Location: Study Date: 01/30/2017 10:19 AM Procedure: A color flow and duplex scan of the lower extremity arteries was performed bilaterally with velocity and waveform anaylsis. Ankle brachial indicies performed. 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 0 % stenosis at the Femoral artery. Ankle Brachial index is 1.09. PPG's are multiphasic , dampened. Left Side Arterial Evaluation Normal velocity and triphasic waveforms noted from the Common Femoral artery to the Anterior Tibial artery . Occluded Posterior Tibial artery. Occlusion as noted . Ankle Brachial index is 1.09. PPG's are dampened, multiphasic , except for monophasic waveforms in the 2nd., 3rd. and 5th. toes. Interpretation Summary No hemodynamically significant lesions in the right lower extremity only, on duplex imaging, at rest. Mild hemodynamically significant lesions in the left lower extremity only, on duplex imaging, at rest. Discordant PPG's noted. : ZAY BURNETT > Tom Saavedra
== END ==
LOC: SP 09:53
PROVIDERS: ATTEND Podiatrist Foot Surgery
DX: I73.9 Peripheral vascular disease, unspecified (principal)
CPT/HCPCS: 93925